=== PATIENT | female | born 1980 | race Caucasian/White ===

== ENCOUNTER 2017-08-17 19:39 | Emergency (ER) | payer OTHER ==
--- NOTE | 2017-08-17 20:02 | EDPHY ---
H & P Stated Complaint: with vaginal bleeding x 1 week. Heavier bleeding tonight. Source: Patient Exam Limitations: No limitations - Personal History LMP (Females 10-55): Current Tetanus/Diphtheria Vaccine: Unsure Current Tetanus Diphtheria and Acellular Pertussis (TDAP): Unsure Tetanus Vaccine Date: 2009 - Medical/Surgical History Hx Asthma: No Hx Chronic Respiratory Disease: No Hx Diabetes: No Hx Cardiac Disease: No Hx Renal Disease: No Hx Cirrhosis: No Hx Alcoholism: No Hx HIV/AIDS: No Hx Splenectomy or Spleen Trauma: No Other PMH: MEDICAL- UTI. SURGERY- TONISLECTOMY - Social History Smoking Status: Never smoked Time Seen by Provider: 08/17/17 20:01 HPI/ROS: CHIEF COMPLAINT: Uterine bleeding HISTORY OF PRESENT ILLNESS: The patient is a at 8 weeks who presents to the ED with intermittent vaginal bleeding. The patient had an ultrasound performed at [facility] which demonstrated a indeterminate IUP. This was performed on Thursday. She has had intermittent VB for the past week. She denies heavy bleeding or passage of clots. The patient reports no prior complications with her previous . The patient denies any dysuria. She does complain of some mild lower pelvic cramping. REVIEW OF SYSTEMS: A comprehensive 10 point review of systems is otherwise negative aside from elements mentioned in the history of present illness. (Owen Cheng) - Physical Exam Exam: General Appearance: Alert, no distress Head: No periorbital edema Eyes: Pupils equal and round no pallor or injection ENT, Mouth: Mucous membranes moist Respiratory: There are no retractions, lungs are clear to auscultation Cardiovascular: Regular rate and rhythm Gastrointestinal: Abdomen is soft and nontender, no masses, bowel sounds normal Neurological: 5/5 strength all 4 extremities, no hyperreflexia Skin: Warm and dry, no rashes Musculoskeletal: Neck is supple nontender Extremities: symmetrical, full range of motion, no pedal edema (Owen Cheng) Constitutional: Initial Vital Signs Temperature (C) 37.1 C 08/17/17 19:43 Heart Rate 68 08/17/17 19:43 Respiratory Rate 15 08/17/17 19:43 Blood Pressure 134/90 H 08/17/17 19:43 O2 Sat (%) 98 08/17/17 19:43 O2 Delivery Mode Room Air Allergies/Adverse Reactions: No Known Allergies Allergy (Unverified 05/13/09 09:58) Home Medications: Medication Instructions Recorded 08/17/17 Medical Decision Making - Diagnostics Imaging Results: Imaging Impressions Obstetrics Ultrasound 08/17/17 20:02 Impression: Single intrauterine , with estimated age of 6 weeks and 1 day. No motion or heart rate detected. This could represent early demise versus less likely too early to detect cardiac activity. Recommend follow up. Results called to the ED and given to Dr. Carline Su on August 17, 2017 at 2100 hours. ED Course/Re-evaluation: I reviewed the patient's past medical records, she is noted to be A+ in her blood type. Urinalysis demonstrates no evidence of infection. Her CBC is normal. Quantitative HCG and pelvic ultrasound pending at this point time. The patient will be turned over to Dr. Su at shift change pending these studies. (Owen Cheng) 2100: The patient is signed out to me at change of shift by Dr. Cheng. The patient waiting ultrasound result. Ultrasound: Please refer the dictated report. The patient has a 6 week 1 day IUP. No visible heart rate. Beta quant is 24,700. I discussed the case with Dr. Trinidad from obstetrics. She recommended the patient be discharged from the emergency department with a lab slip to have a beta quant drawn in 2 days on August 19. I discussed the results with the patient and family. I explained the plan and answered all their questions. She is given warnings prior to leaving. She will return with worsening symptoms. (Carline Su) Differential Diagnosis: Differential diagnosis considered includes threatened , placenta previa , urinary tract infection (Owen Cheng) - Data Points Laboratory Results: Laboratory Results 08/17/17 20:17 08/17/17 08/17/17 08/17/17 20:17 20:17 20:11 WBC 12.73 10^3/uL H 10^3/uL (3.80-9.50) RBC 4.83 10^6/uL 10^6/uL (4.18-5.33) Hgb 14.5 g/dL g/dL (12.6-16.3) Hct 43.0 % % (38.0-47.0) MCV 89.0 fL fL (81.5-99.8) MCH 30.0 pg pg (27.9-34.1) MCHC 33.7 g/dL g/dL (32.4-36.7) RDW 13.4 % % (11.5-15.2) Plt Count 232 10^3/uL 10^3/uL (150-400) MPV 10.7 fL fL (8.7-11.7) Neut % (Auto) 53.4 % % (39.3-74.2) Lymph % (Auto) 38.4 % % (15.0-45.0) [place] % (Auto) 6.3 % % (4.5-13.0) Eos % (Auto) 1.3 % % (0.6-7.6) Baso % (Auto) 0.4 % % (0.3-1.7) Nucleat RBC Rel Count 0.0 % % (0.0-0.2) Absolute Neuts (auto) 6.80 10^3/uL H 10^3/uL (1.70-6.50) Absolute Lymphs (auto) 4.89 10^3/uL H 10^3/uL (1.00-3.00) Absolute Monos (auto) 0.80 10^3/uL 10^3/uL (0.30-0.80) Absolute Eos (auto) 0.16 10^3/uL 10^3/uL (0.03-0.40) Absolute Basos (auto) 0.05 10^3/uL 10^3/uL (0.02-0.10) Absolute Nucleated RBC 0.00 10^3/uL 10^3/uL (0-0.01) Immature Gran % 0.2 % % (0.0-1.1) Immature Gran # 0.03 10^3/uL 10^3/uL (0.00-0.10) Beta HCG, Quant 52927.00 mIU/mL H mIU/mL (0.00-4.83) Urine Color PALE YELLOW Urine Appearance CLEAR Urine pH 7.0 (5.0-7.5) Ur Specific [place] 1.003 (1.002-1.030) Urine Protein NEGATIVE (NEGATIVE) Urine Ketones NEGATIVE (NEGATIVE) Urine Blood 3+ H (NEGATIVE) Urine Nitrate NEGATIVE (NEGATIVE) Urine Bilirubin NEGATIVE (NEGATIVE) Urine Urobilinogen NEGATIVE EU EU (0.2-1.0) Ur Leukocyte Esterase NEGATIVE (NEGATIVE) Urine RBC 1-3 /hpf /hpf (0-3) Urine WBC 1-3 /hpf /hpf (0-3) Ur Epithelial Cells TRACE /lpf /lpf (NONE-1+) Urine Bacteria TRACE /hpf H /hpf (NONE SEEN) Urine Glucose NEGATIVE (NEGATIVE) Departure - Departure Disposition: Home, Routine, Self-Care Clinical Impression: Threatened Condition: Good Instructions: Threatened Miscarriage (ED) Additional Instructions: You need to have your or blood drawn in 2 days on August 19 at the [facility] lab. Bring your lab slip that was given to in the emergency department. Call Dr. Trinidad to arrange a follow-up appointment after the blood is drawn. Return the emergency department with worsening symptoms or any other concerns. Referrals: Violet Almeida PA [Primary Care Provider] - As per Instructions Aileen Trinidad MD [Medical Doctor] - 2-3 days, call for appt.
[2017-08-17 20:28] LABS: PLATELET COUNT 232 10^3/uL (150-400)
[2017-08-17 21:33] VITALS: BP 111/60; PULSE 60; RESP 16; TEMP 98.4; O2SAT 97
== END 2017-08-17 22:52 | disposition home or self-care (01) ==
DX: O20.0 Threatened abortion (principal); Z3A.08 8 weeks gestation of pregnancy